=== PATIENT | male | born 1970 | race Caucasian/White ===

== ENCOUNTER 2025-02-28 13:58 | Emergency (ER) | payer BC ==
[2025-02-28] MEDS: Ketorolac 30 MG/ML SDV IVPUSH ONE (14:39)
[2025-02-28] MEDS: Acetaminophen/oxyCODONE 325-5 MG Tab PO ONE (17:34)
== END 2025-02-28 19:28 ==
LOC: JP.ED 13:58
DX: M97.02XA Periprosthetic fracture around internal prosthetic left hip joint, initial encounter (principal); S32.402A Unspecified fracture of left acetabulum, initial encounter for closed fracture; S50.312A Abrasion of left elbow, initial encounter; Z88.6 Allergy status to analgesic agent; Z88.2 Allergy status to sulfonamides; Z79.899 Other long term (current) drug therapy; V11.4XXA Pedal cycle driver injured in collision with other pedal cycle in traffic accident, initial encounter; Y93.55 Activity, bike riding
CPT/HCPCS: 73502; 96361; 96374; 99285; A9270; J1171; J1885; J7030; 99284